=== PATIENT | female | born 1990 | race Hispanic/Latino ===

== ENCOUNTER 2019-06-21 19:30 | Inpatient (IN) | payer OTHER ==
[2019-06-21] MEDS ORDERED: Promethazine HCl 25 MG/ML VIAL IM PRN (21:33)
[2019-06-21] MEDS ORDERED: Butorphanol Tartrate 1 MG/ML VIAL SLOW IVP PRN (21:33)
[2019-06-21] MEDS ORDERED: Acetaminophen 500 MG TAB PO PRN (21:33)
[2019-06-21] MEDS ORDERED: hydrALAZINE 20 MG/ML VIAL SLOW IVP PRN (21:33)
[2019-06-21] MEDS ORDERED: Ondansetron PF 4 MG/2 ML Vial IVP PRN (21:33)
[2019-06-21] MEDS ORDERED: Lidocaine 1% (PF) 30 ML VIAL SC PRN (21:33)
[2019-06-21] MEDS ORDERED: NS / Oxytocin 40 units/1000ml 1,000 ML IV PRN (21:33)
[2019-06-21] MEDS ORDERED: NS w/ Oxytocin 10 units 500 ML IV SCH (21:33)
[2019-06-21] MEDS ORDERED: Misoprostol 200 MCG TAB PR PRN (21:33)
[2019-06-21] MEDS ORDERED: Ibuprofen 800 MG TAB PO PRN (21:33)
[2019-06-21] MEDS ORDERED: HYDROcodone/Acetaminophen 5/325 mg Tablet PO PRN (21:33)
[2019-06-21 22:09] VITALS: BMI 31.2
[2019-06-21 22:32] LABS: Hemoglobin 11.3 g/dL (12.0-16.0); Mean Corpuscular HGB CONC 33.7 g/dL (32.0-36.0); Mean Corpuscular Hemoglobin 27.5 pg (27.0-31.0); Mean Corpuscular Volume 81.6 fL (78.0-98.0); Mean Platelet Volume 8.7 fL (7.4-10.4); Platelet Count 241 thou/uL (130-400); RBC Distribution Width 15.1 % (11.5-14.5); Red Blood Cell (RBC) Count 4.11 mill/uL (4.20-5.40); White Blood Cell (WBC) Count 8.6 thou/uL (4.8-10.8)
[2019-06-21] MEDS: Misoprostol 100 MCG TAB VAG SCH (22:34)
[2019-06-21] MEDS: Lactated Ringer's 1,000 ML IV SCH (22:34)
[2019-06-21 23:10] LABS: Syphilis Antibody Nonreactive (Nonreactive); Syphilis Antibody Index 0.03 S/CO (<1.00 Non-Reactive)
[2019-06-21 23:13] LABS: HBSAg Index 0.13 S/CO (0-0.99); Hep B Surf Ag Non-Reactive S/CO (NonReactive)
[2019-06-22] MEDS: Misoprostol 100 MCG TAB VAG SCH ×3 (01:47→19:46)
[2019-06-22] MEDS ORDERED: Fentanyl 4 mcg/Bup 0.1% Cadd 100 ML ONE (05:45)
[2019-06-22] MEDS: Lactated Ringer's 1,000 ML IV SCH ×5 (05:59→22:09)
[2019-06-22] MEDS ORDERED: Lidocaine 1.5%/Epinephrine 1:200,000 5 ML AMPUL IJ ONE (06:05)
[2019-06-22] MEDS ORDERED: diphenhydrAMINE 50 MG/ML VIAL IVP PRN ×2 (06:25→12:51)
[2019-06-22] MEDS ORDERED: ePHEDrine/0.9% NaCl/PF SYRINGE 50 mg/10 ml SLOW IVP PRN (06:25)
[2019-06-22] MEDS ORDERED: Acetaminophen 325 MG TAB PO PRN (06:25)
[2019-06-22] MEDS ORDERED: Naloxone HCl 0.4 mg/ml Vial IVP PRN ×4 (06:25→12:51)
[2019-06-22] MEDS ORDERED: Ondansetron PF 4 MG/2 ML Vial IVP PRN ×2 (06:25→12:51)
[2019-06-22] MEDS ORDERED: Promethazine HCl 25 MG/ML VIAL IM PRN ×2 (06:25→12:51)
[2019-06-22] MEDS ORDERED: Lactated Ringer's 500 ML IV PRN (06:25)
[2019-06-22] MEDS ORDERED: Fentanyl 4 mcg/Bupivacaine 0.1% Cassette 100 ML EPIDURAL SCH (06:30)
[2019-06-22] MEDS ORDERED: Communication Order-Pharmacy FS SCH (06:30)
[2019-06-22] MEDS ORDERED: Bicitra 30 ML UDCUP ONE (11:48)
[2019-06-22] MEDS ORDERED: Lidocaine 2% 10 ML INJ ONE (11:58)
[2019-06-22] MEDS ORDERED: EPINEPHrine 1 MG/ML AMP ONE (11:58)
[2019-06-22] MEDS ORDERED: Azithromycin 500 MG VIAL ONE (12:09)
[2019-06-22] MEDS ORDERED: Lanolin Ointment 7 GM TUBE TOP PRN (12:13)
[2019-06-22] MEDS ORDERED: Adacel (T-DAP) 0.5 ML SYRINGE IM ONE (12:13)
[2019-06-22] MEDS ORDERED: hydrALAZINE 20 MG/ML VIAL SLOW IVP PRN (12:13)
[2019-06-22] MEDS ORDERED: Zolpidem Tartrate 5 MG TAB PO PRN (12:13)
[2019-06-22] MEDS ORDERED: Simethicone Chewable 80 MG TAB PO PRN (12:13)
[2019-06-22] MEDS ORDERED: HYDROcodone/Acetaminophen 5/325 mg Tablet PO PRN (12:13)
[2019-06-22] MEDS ORDERED: diphenhydrAMINE 25 MG CAP PO PRN (12:13)
[2019-06-22] MEDS ORDERED: CEFAZOLIN 2 GM in Premix Bag 1 BAG IVPB SCH (12:15)
[2019-06-22] MEDS ORDERED: Azithromycin 500 MG in Sodium Chloride 0.9% 250 ML 250 ML IVPB SCH (12:15)
[2019-06-22] MEDS ORDERED: Bicitra 30 ML UDCUP PO SCH (12:15)
[2019-06-22] MEDS ORDERED: Ondansetron PF 4 MG/2 ML Vial ONE (12:27)
[2019-06-22] MEDS ORDERED: Oxytocin 10 UNITS/ML VIAL ONE (12:28)
[2019-06-22] MEDS ORDERED: MORPHINE 5 MG/10 ML PF VIAL ONE (12:28)
[2019-06-22] MEDS ORDERED: Fentanyl 100 MCG/2 ML VIAL ONE ×2 (12:28→15:42)
[2019-06-22] MEDS ORDERED: PHENYLEPHRINE-NS 100 MCG/ML 10 ML SYRINGE ONE (12:28)
[2019-06-22] MEDS ORDERED: Dexamethasone 4 mg/ml Vial ONE (12:29)
[2019-06-22] MEDS ORDERED: Ketorolac Tromethamine 30 MG/ML VIAL ONE (12:29)
[2019-06-22] MEDS ORDERED: Methylergonovine 0.2 MG/ML VIAL ONE (12:41)
[2019-06-22] MEDS ORDERED: Ondansetron HCl/PF 4 MG/2 ML Vial IVP PRN (12:51)
[2019-06-22] MEDS ORDERED: Naloxone HCl 0.4 mg/ml Vial IV PRN (12:51)
[2019-06-22] MEDS ORDERED: Promethazine HCl 25 MG SUPP PR PRN (12:51)
[2019-06-22] MEDS ORDERED: Acetaminophen 1,000 MG in Premix Bag 1 BAG IVPB PRN (12:53)
[2019-06-22] MEDS ORDERED: [UNRECOGNIZED DRUG - REMARK] FS SCH (13:00)
--- NOTE | 2019-06-22 13:04 | PDOC.OPDEL ---
OB Operative/Delivery Note Delivery Dr/Surgeon: Cheryl Assist: Cassi Pre-Delivery Diagnosis: elective induction (Failure to progress non reassuring heart rate tracing) Procedure/Post Delivery Dx: primary low transverse CS Anesthesia: epidural - Findings A Sex: male Weight: 7 lb 12 oz - 1 min: 6 - 5 min: 7 - Additional Findings/Plan Placenta delivered: manual removal findings: low transverse hysterotomy without extension Estimated blood loss: 750ml Post delivery plan: routine recovery (10 minute 9)
[2019-06-22 13:07] LABS: Actual Bicarbonate (HCO3a) 22.9 mEq/L (22-28); Analyzer IN Cardio OR; Base Excess (BEa) -4.8 mEq/L (-2.0 to +3.0)
[2019-06-22] MEDS ORDERED: Ibuprofen 800 MG TAB PO SCH (14:00)
[2019-06-22] MEDS ORDERED: Meperidine HCl/PF 25 MG/ML VIAL ONE (14:09)
--- NOTE | 2019-06-22 15:02 | OP ---
DATE OF PROCEDURE: 06/22/2019 PREOPERATIVE DIAGNOSES: 1. A 28-year-old female, G1, P0, at 40 weeks and 5 days gestation, status post labor induction for postdates. 2. Failure to progress at 8 cm. 3. Non-reassuring heart rate tracing. POSTOPERATIVE DIAGNOSES: 1. A 28-year-old female, G1, P0, at 40 weeks and 5 days gestation, status post labor induction for postdates. 2. Failure to progress at 8 cm. 3. Non-reassuring heart rate tracing. PROCEDURE PERFORMED: Primary low transverse section without extension. CHIEF MERCHANDISING OFFICER SURGEON: Dr. Ye, [facility]. ANESTHESIA: Epidural. ESTIMATED BLOOD LOSS: 750 mL. COMPLICATIONS: None. COUNTS: Correct x2. ANTIBIOTICS: 2 g Ancef on-call to OR along with 500 mg of Zithromax. FINDINGS: 1. Male noted caput. Apgars 6, 7, and 9. weight was 7 pounds 12 ounces. 2. Normal-appearing fallopian tubes, ovaries, and uterus. DISPOSITION: To recovery room, stable. DESCRIPTION OF PROCEDURE: The patient previously received informed consent in regard to surgery. She was taken back to the operative suite, where her epidural was dosed for adequate operative delivery. A Pfannenstiel incision was made in the lower abdomen after the patient been prepped and draped. The fascia was nicked in the midline. Fascial incision was extended bilaterally using curved Grimes scissors. The rectus fascia was dissected superiorly and inferiorly off the rectus muscle belly and the rectus muscle bellies divided in the midline. Peritoneal cavity was entered. At this time, a 2 cm hysterotomy incision was made above the vesicouterine peritoneal reflection and this was extended via finger fractionation. The baby was delivered in the vertex presentation. Mouth and nares of the were bulb suctioned on the abdomen. The cord was then doubly clamped and cut and the baby was handed to the pediatric team in attendance. The usual cord blood along with the ABG cord segment was obtained. Placenta was manually extracted and the uterus was externalized. The uterus was curetted of any remaining placental fragments with a dry laparotomy sponge. Hysterotomy incision that was closed with #1 Monocryl suture in running locking fashion securing hemostasis. The uterus was then returned back in the abdomen after pelvis had been irrigated. The hysterotomy incision again was confirmed to be hemostatic. The muscle bellies were then inspected prior to fascial closure. Hemostasis was confirmed. The fascia was closed with 0 PDS suture x2 in a running continuous fashion. The subcutaneous tissue was irrigated, noted to be hemostatic prior to approximation with the skin with omid. The surgery was terminated. No anesthetic or surgical complications occurred. Job ID: [id number]
[2019-06-22] MEDS: Ketorolac Tromethamine 30 MG/ML VIAL IVP SCH (19:53)
[2019-06-22] MEDS: Ferrous Sulfate 325 MG TAB PO SCH (20:49)
[2019-06-22] MEDS: Docusate Calcium (SURFAK) 240 MG CAP PO SCH (21:18)
[2019-06-23] MEDS: Ketorolac Tromethamine 30 MG/ML VIAL IVP SCH ×3 (01:10→11:38)
[2019-06-23 05:39] LABS: Hemoglobin 8.4 g/dL (12.0-16.0); Mean Corpuscular HGB CONC 33.2 g/dL (32.0-36.0); Mean Corpuscular Hemoglobin 27.4 pg (27.0-31.0); Mean Corpuscular Volume 82.6 fL (78.0-98.0); Mean Platelet Volume 8.3 fL (7.4-10.4); Platelet Count 188 thou/uL (130-400); RBC Distribution Width 15.3 % (11.5-14.5); Red Blood Cell (RBC) Count 3.07 mill/uL (4.20-5.40); White Blood Cell (WBC) Count 16.8 thou/uL (4.8-10.8)
[2019-06-23] MEDS ORDERED: Sodium Chloride 0.9% 10 ML ONE (06:12)
--- NOTE | 2019-06-23 08:04 | PDOC.PP ---
Post Progress Note Post Day #: 1 PO intake tolerated: yes Flatus: yes Ambulation: yes Vital Signs (12 hours) Temp Pulse Resp BP Pulse Ox 06/23/19 04:07 98.0 F 75 18 116/66 95 06/23/19 01:17 98.3 F 64 20 108/56 L 95 Weight Weight 182 lb Result Diagrams: 06/23/19 05:26 Additional Labs: Post Labs Blood Type O POSITIVE 06/21/19 23:02 Hep Bs Antigen Non-Reactive S/CO (NonReactive) 06/21/19 22:23 - Assessment/Plan Post op day 1 from primary c/s. FTP and non reassuring FHRT....Doing well. routine care..
[2019-06-23] MEDS: Prenatal Vitamin 1 TAB PO SCH (08:56)
[2019-06-23] MEDS: Docusate Calcium (SURFAK) 240 MG CAP PO SCH ×2 (08:57→21:57)
[2019-06-23] MEDS: Ferrous Sulfate 325 MG TAB PO SCH ×2 (08:57→21:57)
[2019-06-23] MEDS: Lactated Ringer's 1,000 ML IV SCH ×3 (11:39→20:11)
[2019-06-23] MEDS ORDERED: Ibuprofen 800 MG TAB PO SCH (14:30)
[2019-06-23] MEDS: Ibuprofen 800 MG TAB PO SCH (21:57)
[2019-06-24] MEDS: Ibuprofen 800 MG TAB PO SCH (05:53)
[2019-06-24] MEDS ORDERED: Ibuprofen 800 MG TAB PO SCH (06:00)
[2019-06-24 08:21] VITALS: BP 132/76; TEMP 98.4
[2019-06-24] MEDS: Ferrous Sulfate 325 MG TAB PO SCH (09:49)
[2019-06-24] MEDS: Prenatal Vitamin 1 TAB PO SCH (09:49)
[2019-06-24] MEDS: Docusate Calcium (SURFAK) 240 MG CAP PO SCH (09:49)
--- NOTE | 2019-06-24 10:03 | PDOC.PP ---
Post Progress Note Post Day #: 2 PO intake tolerated: yes Flatus: yes Ambulation: yes Vital Signs (12 hours) Temp Pulse Resp BP Pulse Ox 06/24/19 08:20 98.4 F 76 20 132/76 96 06/24/19 04:00 98 F 82 16 119/60 82 L 06/24/19 00:00 98 F 81 16 122/64 95 Weight Weight 182 lb Result Diagrams: 06/23/19 05:26 Additional Labs: Post Labs Blood Type O POSITIVE 06/21/19 23:02 Hep Bs Antigen Non-Reactive S/CO (NonReactive) 06/21/19 22:23 - Assessment/Plan Post op day 2..Doing well. Discharge home. F/u in 1 and 6 weeks....
--- NOTE | 2019-06-27 05:55 | PQF ---
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 Clinical indicators are provided on the bottom of this form for your review Please check appropriate box(s): [ ] Acute blood loss anemia [ ] Post-op anemia related to acute blood loss [ ] Chronic Anemia [ ] Other diagnosis [ ] Unable to determine In addition, please specify: Present on Admission (POA): [ ] Yes [ ] No [ ] Unable to determine For continuity of documentation, please document condition throughout progress notes and discharge summary. Thank You. CLINICAL INDICATORS - SIGNS / SYMPTOMS / LABS HGB 11.3 on 06/21 and 8.4 on 06/23 - Documented in Laboratory HCT 33.6 on 06/21 and 25.3 on 06/23 - Documented in Laboratory Pulse rate 102 on 06/21 - Documented in Vital Signs BP 108/56 on 06/23 - Documented in Vital Signs RISK FACTORS failure to progress - Documented in Labor and Delivery report Estimated Blood loss 750 ml - Documented in Labor and Delivery report Non reassuring heart rate - Documented in Labor and Delivery report Primary C section - Documented in Labor and Delivery report TREATMENTS: Ferrous sulfate 325mg - Medication report (This form is maintained as a part of the permanent medical record) 2014 [employer]. All Rights Reserved [email or web address] [email or web address] [not provided] MTDD
== END 2019-06-24 12:57 | disposition home or self-care (01) | DRG 788 ==
LOC: L&D 21:11 → 3SE 06-22 19:03
PROVIDERS: ADMIT Obstetrics & Gynecology; ATTEND Obstetrics & Gynecology
PROC: 10D00Z1 Extraction of Products of Conception, Low, Open Approach (ICD-10-PCS; principal; 2019-06-22)
DX: O48.0 Post-term pregnancy (principal); O76 Abnormality in fetal heart rate and rhythm complicating labor and delivery; Z3A.40 40 weeks gestation of pregnancy; Z37.0 Single live birth; O62.1 Secondary uterine inertia
CPT/HCPCS: 36415; 51702; 82805; 85027; 86780; 86850; 86900; 86901; 87340; J0131; J0171; J0456; J0595; J0690; J1100; J1885; J2001; J2175; J2210; J2274; J2405; J2590; J3010; J3490